=== PATIENT | male | born 1930 | race Caucasian/White ===

== ENCOUNTER → 2017-10-05 | Outpatient (CLI) | payer MEDICARE ==
[~2017-10-05] MED LIST: AEC81 PO; CARV12.580 PO; CLOP75TA14 PO; DOCU100T PO; FLUT16H NASAL; INSU100C14 SQ; INSU100C6 SQ; INSU100V12 SQ; LISI-617 PO; LISI10TA7 PO; MONT10TA21 PO; PRED20TA3 PO; SIMV10TA2 PO; SPIR25TA PO; TAMS-1 PO; TORS10TA18 PO; TORS20TA4 PO; UBID100C10 PO; WARF-57 PO
== END | disposition home or self-care (01) ==
LOC: OIH 10:02
PROVIDERS: ATTEND Psychiatry & Neurology Neurology
DX: G45.9 Transient cerebral ischemic attack, unspecified (principal); G31.9 Degenerative disease of nervous system, unspecified
CPT/HCPCS: 70450

== ENCOUNTER 2017-10-12 05:49 | Day surgery (SDC) | payer MEDICARE ==
[2017-10-10 09:17] VITALS: BP 105/54
[2017-10-10 09:18] LABS: BASOPHILS % (AUTO) 0.5 % (0.0-5.0); EOSINOPHILS % (AUTO) 1.1 % (0.0-8.0); HEMATOCRIT 35.9 % (42-54); LYMPHOCYTES % (AUTO) 8.7 % (21.0-51.0); MEAN CORPUSCULAR HEMOGLOBIN 27.7 pg (27.0-33.0); MEAN CORPUSCULAR VOLUME 81.4 fL (79-99); MONOCYTES % (AUTO) 10.5 % (3.0-13.0); NEUTROPHILS % (AUTO) 79.2 % (40.0-77.0); NUCLEATED RED BLOOD CELLS 0.1 % (0.0-0.19); PLATELET COUNT (AUTO) 142 K/uL (130-400); RED BLOOD CELL COUNT(AUTO) 4.41 MIL/uL (4.50-6.20); RED CELL DISTRIBUTION WIDTH 16.6 % (11.0-15.5); WHITE BLOOD COUNT (AUTO) 8.3 K/uL (4.8-10.8)
[2017-10-10 09:20] LABS: APPEARANCE,URINE Clear (CLEAR); BILIRUBIN,URINE Negative (NEGATIVE); COLOR,URINE Dark Yellow (YELLOW); GLUCOSE, URINE (UA) Negative (NEGATIVE); KETONES,URINE Trace mg/dL (NEGATIVE); LEUKOCYTE ESTERASE ,URINE Negative (NEGATIVE); NITRATE,URINE Negative (NEGATIVE); OCCULT BLOOD,URINE Negative (NEGATIVE); PROTEIN,URINE POS 1+ (NEGATIVE)
[2017-10-10 09:29] LABS: BACTERIA,URINE Rare /HPF (None Seen); SQUAMOUS EPITHELIAL CELL,UR Rare /LPF (0-2); WBC,URINE 0-1 /HPF (0-1)
[2017-10-10 09:33] LABS: CREATININE 1.2 mg/dL (0.5-1.5); POTASSIUM 4.5 mmol/L (3.5-5.1)
[2017-10-10 09:34] LABS: INR 1.94 (0.85-1.15); PARTIAL THROMBOPLASTIN TIME 33.3 SEC (26.3-35.5); PROTHROMBIN TIME 20.1 SEC (9.6-11.6)
[2017-10-12] VITALS (11 sets, daily range): BP systolic 106–148; BP diastolic 69–79
[~2017-10-12] VITALS: Ht 185.4 cm; Wt 108.1 kg
[~2017-10-12 05:49] MED LIST changes: +ACETAMINOPHEN 325 MG TAB PO PRN; -AEC81 PO; -FLUT16H NASAL; -INSU100C6 SQ; -LISI10TA7 PO; -MONT10TA21 PO; -PRED20TA3 PO; +SODIUM CHLORIDE 0.9% 500ML 500 ML IV SCH; -SPIR25TA PO; -TORS20TA4 PO; -UBID100C10 PO
[2017-10-12] MEDS ORDERED: SODIUM CHLORIDE 0.9% 1000ML 1,000 ML IV ONE (06:57)
[2017-10-12] MEDS ORDERED: LIDOCAINE HCL 2% 20ML ONE (07:07)
[2017-10-12] MEDS ORDERED: NITROGLYCERIN 5 MG/ML 10 ML VIAL IV ONE (07:07)
[2017-10-12] MEDS ORDERED: ISOVUE-370 50ML VIAL IV ONE (07:07)
[2017-10-12] MEDS ORDERED: IOPAMIDOL-370 100 ML VIAL IV ONE (07:07)
[2017-10-12] MEDS ORDERED: HEPARIN SODIUM 1000UNIT/ML 10ML VIAL ONE (07:07)
[2017-10-12] MEDS ORDERED: SODIUM BICARB 50MEQ 50ML VIAL ONE (07:07)
[2017-10-12] MEDS ORDERED: IOPAMIDOL-370 75 ML VIAL IV ONE (07:07)
[2017-10-12] MEDS ORDERED: TORS20TA4 PO (08:56)
[2017-10-12] MEDS ORDERED: SPIR25TA PO (08:56)
[2017-10-12] MEDS ORDERED: SODIUM CHLORIDE 0.9% 10 ML VIAL IVP SCH (09:00)
[2017-10-12] MEDS ORDERED: BENZOCAINE 20% 57 GM SPRAY ONE (11:15)
[2017-10-12] MEDS ORDERED: MIDAZOLAM HCL 1 MG/ML 2ML VIAL ONE ×2 (12:19→15:03)
[2017-10-12] MEDS ORDERED: FENTANYL CITRATE PF 50 MCG/1 ML 2ML VIAL ONE ×2 (12:20→15:03)
== END 2017-10-12 13:00 | disposition home or self-care (01) ==
LOC: DAH 05:49
PROVIDERS: ATTEND Internal Medicine Cardiovascular Disease
DX: I25.118 Atherosclerotic heart disease of native coronary artery with other forms of angina pectoris (principal); I35.0 Nonrheumatic aortic (valve) stenosis; I11.0 Hypertensive heart disease with heart failure; I50.9 Heart failure, unspecified; Z95.1 Presence of aortocoronary bypass graft; Z95.0 Presence of cardiac pacemaker
CPT/HCPCS: 36415; 71045; 80048; 81001; 82948 ×2; 85025; 85610; 85730; 93005; 93312; 93461; 99156; 99157; C1760; C1769; C1893; C1894; J1644; J2250; J3010; J3490 ×3; J7030; Q9967 ×2

== ENCOUNTER → 2017-12-17 | Outpatient (CLI) | payer MEDICARE ==
[~2017-12-17] MED LIST changes: -ACETAMINOPHEN 325 MG TAB PO PRN; -SODIUM CHLORIDE 0.9% 500ML 500 ML IV SCH; +SPIR25TA PO; -TORS10TA18 PO; +TORS20TA4 PO
== END | disposition home or self-care (01) ==
LOC: SHCH 08:59
PROVIDERS: ATTEND Internal Medicine Cardiovascular Disease
DX: I25.5 Ischemic cardiomyopathy (principal); I34.0 Nonrheumatic mitral (valve) insufficiency; Z95.3 Presence of xenogenic heart valve
CPT/HCPCS: 93306

== ENCOUNTER 2019-09-11 06:00 | Day surgery (SDC) | payer MEDICARE ==
[2019-09-09 08:42] VITALS: BP 127/65
[2019-09-09 09:05] LABS: BASOPHILS % (AUTO) 0.1 % (0.0-5.0); EOSINOPHILS % (AUTO) 0.7 % (0.0-8.0); HEMATOCRIT 38.2 % (42-54); LYMPHOCYTES % (AUTO) 11.4 % (21.0-51.0); MEAN CORPUSCULAR HEMOGLOBIN 26.4 pg (27.0-33.0); MEAN CORPUSCULAR HGB CONC 30.6 g/dL (32.0-36.0); MEAN CORPUSCULAR VOLUME 86.2 fL (79-99); MONOCYTES % (AUTO) 8.4 % (3.0-13.0); PLATELET COUNT (AUTO) 132 K/uL (130-400); RED BLOOD CELL COUNT(AUTO) 4.43 MIL/uL (4.50-6.20); RED CELL DISTRIBUTION WIDTH 15.1 % (11.0-15.5)
[2019-09-09 09:11] LABS: POTASSIUM 3.9 mmol/L (3.5-5.1)
[2019-09-09 09:15] LABS: INR 1.69 (0.85-1.15); PARTIAL THROMBOPLASTIN TIME 30.5 SEC (26.3-35.5); PROTHROMBIN TIME 17.4 SEC (9.6-11.6)
--- NOTE | 2019-09-09 13:40 | NUR ---
LABS ABNORMAL LABS REPORTED TO ALEXANDRO SMITH,NO FURTHER ORDERS GIVEN, OK TO PROCEED WITH PLANNED PROCEDURE
[~2019-09-11] VITALS: Ht 185.4 cm; Wt 98.8 kg
[2019-09-11] VITALS (12 sets, daily range): BP systolic 141–176; BP diastolic 72–88
[~2019-09-11 06:00] MED LIST changes: +ALBUTEROL NEB IH; -CARV12.580 PO; +CARV3.12 PO; +CEFAZOLIN SODIUM 1 GM VIAL IVP SCH; +HYDR-4068 PO; -INSU100C14 SQ; +INSU100C6 SQ; -INSU100V12 SQ; +INSU3INS3 SQ; -LISI-617 PO; +PRED20TA3 PO; +SINUS RINSE NASAL; -SPIR25TA PO; +TORS10TA18 PO; -TORS20TA4 PO; +WARF2.5T85 PO
[2019-09-11] MEDS ORDERED: MIDAZOLAM HCL 1 MG/ML 2ML VIAL ONE ×4 (07:20→10:08)
[2019-09-11] MEDS ORDERED: BUPIVACAINE/PF 0.25% 30ML VIAL IJ ONE (07:20)
[2019-09-11] MEDS ORDERED: MEPERIDINE-PF 25 MG/ML SYG ONE ×4 (07:20→10:08)
[2019-09-11] MEDS ORDERED: CEFAZOLIN SODIUM 1 GM VIAL ONE (07:20)
[2019-09-11] MEDS ORDERED: LIDOCAINE HCL 1% MDV 50ML VIAL ONE (07:20)
[2019-09-11] MEDS ORDERED: SODIUM CHLORIDE 0.9% 1000ML 1,000 ML IV ONE (07:43)
[2019-09-11] MEDS ORDERED: THROMBIN-JMI 5000 UNIT/VIAL TP ONE (08:13)
[2019-09-11] MEDS ORDERED: OCTYL 2-CYANOACRYLATE 1 EACH TP ONE (08:56)
[2019-09-11] MEDS ORDERED: ONDANSETRON HCL 4 MG/2 ML VIAL IV PRN (10:30)
[2019-09-11] MEDS ORDERED: ACETAMINOPHEN-CODEINE 300/30MG TAB PO PRN (10:30)
[2019-09-11] MEDS ORDERED: CEFAZOLIN SODIUM 1 GM VIAL IVP SCH (10:30)
--- NOTE | 2019-09-11 11:00 | NUR ---
AICD SITE CHECKED, SITE VISIBLE UNDER PRESSURE DRESSING SLIGHTLY SWOLLEN BUT SOFT, NO ACTIVE BLEEDING.
--- NOTE | 2019-09-11 12:00 | NUR ---
NO CHANGES, NO ACTIVE BLEEDING.
[2019-09-11] MEDS ORDERED: IOHEXOL-350 50ML VIAL IV ONE (14:12)
--- NOTE | 2019-09-11 14:45 | NUR ---
RECEIVED REPORT FROM BENIGNO MILES AT BEDSIDE USING SBAR. PATIENT WITH PRESSURE DRESSING TO LEFT CHEST WALL, DRESSING IS DRY AND INTACT, FAMILY AT BEDSIDE.
--- NOTE | 2019-09-11 15:00 | NUR ---
site check AICD SITE CHECKED, SITE VISIBLE UNDER PRESSURE DRESSING SLIGHTLY SWOLLEN BUT SOFT, NO ACTIVE BLEEDING.
--- NOTE | 2019-09-11 16:00 | NUR ---
SITE CHECK AICD SITE CHECKED, SITE VISIBLE UNDER PRESSURE DRESSING SLIGHTLY SWOLLEN BUT SOFT, NO ACTIVE BLEEDING.
--- NOTE | 2019-09-11 16:15 | NUR ---
CALLED [facility] AND SPOKE ISH (PHARMACIST). CALLED IN PRESCRIPTION FOR DOXYCYCLINE HYCLATE 100MG PO Q12 HOURS X 5 DAYS AND XARELTO 20MG PO DAILY, 90 PILLS X 3 REFILLS. PATIENT'S FAMILY INSTRUCTED TO SCALE CLERK MEDICATION AFTER DISCHARGED.
--- NOTE | 2019-09-11 16:30 | NUR ---
SITE CHECK AICD SITE CHECKED, SITE VISIBLE UNDER PRESSURE DRESSING SLIGHTLY SWOLLEN BUT SOFT, NO ACTIVE BLEEDING. SAT PATIENT UP AT THE SIDE OF THE BED, PATIENT TOLERATED WELL. FAMILY MEMBERS AT BEDSIDE.
--- NOTE | 2019-09-11 16:43 | NUR ---
DISCHARGE INSTRUCTIONS PROVIDED TO PATIENT'S SPOUSE. FOLLOW UP APPOINTMENT PROVIDED AND PRESCRIPTIONS CALLED INTO PHARMACY. HANDOUTS PROVIDED AND INSTRUCTED TO REMOVED PRESSURE DRESSING IN 24 HOURS BUT TO LEAVE CLEAR POST OP SITE IN PLACE. PATIENT INSTRUCTED TO START XARELTO ON 09/13/19. PATIENT AND SPOUSE VERBALIZED UNDERSTANDING.
--- NOTE | 2019-09-11 17:10 | NUR ---
PATIENT DISCHARGED FROM FACILITY VIA PRIVATE WHEELCHAIR. PATIENT ASSISTED TO PRIVATE VEHICLE DRIVEN BY SON.
== END 2019-09-11 17:10 | disposition home or self-care (01) ==
LOC: DAH 06:00
PROVIDERS: ATTEND Internal Medicine Cardiovascular Disease
DX: T82.897A Other specified complication of cardiac prosthetic devices, implants and grafts, initial encounter (principal); Y82.8 Other medical devices associated with adverse incidents; I25.10 Atherosclerotic heart disease of native coronary artery without angina pectoris; I25.5 Ischemic cardiomyopathy; I48.20 Chronic atrial fibrillation, unspecified; I11.0 Hypertensive heart disease with heart failure; I50.9 Heart failure, unspecified; G47.33 Obstructive sleep apnea (adult) (pediatric); Z95.5 Presence of coronary angioplasty implant and graft; J44.9 Chronic obstructive pulmonary disease, unspecified; Z79.4 Long term (current) use of insulin; Z79.899 Other long term (current) drug therapy; Z87.891 Personal history of nicotine dependence; Z82.49 Family history of ischemic heart disease and other diseases of the circulatory system; Z83.3 Family history of diabetes mellitus
CPT/HCPCS: 33999; 36415; 80048; 82948 ×2; 85025; 85610; 85730; 93005; A4215; A4216; A4221; A4222; A4223 ×3; A4606; A4663; J0690 ×2; J2175 ×4; J2250 ×4; J3490 ×3; J7030; Q9967; 33223; 99156; 99157